=== PATIENT | female | born 1945 | race Caucasian/White ===

== ENCOUNTER 2016-12-08 11:12 | Emergency (ER) | payer OTHER ==
[~2016-12-08] VITALS: Ht 157.5 cm; Wt 86.2 kg
[2016-12-08] MEDS ORDERED: WAL-FINATE4 MG PO (11:25)
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
[2016-12-08 13:13] VITALS: BP 142/62
== END 2016-12-08 13:24 ==
LOC: ERH 11:12
DX: R07.89 Other chest pain (principal)
CPT/HCPCS: 71100-RT; 93005; 93010